=== PATIENT | male | born 1965 | race Caucasian/White ===

== ENCOUNTER 2021-04-20 22:51 | Observation (INO) ==
[2021-04-21] MEDS ORDERED: Melatonin 3 MG TABLET PO PRN ×2 (01:13→16:52)
[2021-04-21] MEDS ORDERED: Naloxone 0.4 MG/ML INJ IVP PRN (01:13)
[2021-04-21] MEDS ORDERED: Ondansetron 4 MG/2 ML VIAL IVP PRN (01:13)
[2021-04-21] MEDS ORDERED: Acetaminophen 325 MG TABLET PO PRN (01:13)
[2021-04-21] MEDS ORDERED: *HR* HYDROcodone/Acet 5/325 mg TABLET PO PRN ×2 (01:13→16:14)
[2021-04-21] MEDS: Ringers Solution, Lactated 1,000 ML IVC SCH ×2 (03:02→11:28)
[2021-04-21 05:33] LABS: Basophils % 0.3 %; Eosinophils % 0.2 %; Hemoglobin 13.5 g/dL (12.9-16.9); Immature Granulocytes % 0.3 % (0-4); Lymphocytes # 1.5 K/mcL (0.6-4.6); Lymphocytes % 13.2 %; Mean Corpuscular HGB Conc 33.8 g/dL (31.6-35.5); Mean Corpuscular Hemoglobin 29.7 pg (28.0-33.3); Mean Corpuscular Volume 88.1 fL (83.0-100.0); Monocytes % 8.9 %; Neutrophils # 8.9 K/mcL (1.6-8.9); Platelet Count 165 K/mcL (140-400); Red Blood Count 4.54 M/mcL (4.19-5.50); Red Cell Distribution Width 13.3 % (11.5-14.5); Segmented Neutrophils % 77.1 %; White Blood Count 11.6 K/mcL (4.3-11.1)
[2021-04-21 05:37] LABS: INR 1.4; Prothrombin Time 16.5 Seconds (9.4-12.1)
[2021-04-21 05:47] LABS: BUN/Creatinine Ratio 12 (6-26); Blood Urea Nitrogen 15 mg/dL (6-20); Calcium 8.3 mg/dL (8.6-10.3); Carbon Dioxide 21 mEq/L (23-29); Chloride 104 mEq/L (98-107); Glucose 113 mg/dL (70-105); Magnesium 1.8 mg/dL (1.6-2.6); Osmolality,Calculated 282 (280-300); Sodium 135 mEq/L (136-145); eGFR For African Americans > 60 (> 60); eGFR For Non-African Americans > 60 (> 60)
[2021-04-21] MEDS: cefTRIAXone 1,000 MG in Water for inj. (sterile) 10 ML IVP SCH (07:37)
[2021-04-21] MEDS ORDERED: Isovue-300 50ML VIAL ONE (07:53)
[2021-04-21] MEDS ORDERED: *HR* Midazolam HCl 2 MG/2 ML VIAL ONE (08:05)
[2021-04-21] MEDS ORDERED: *HR* FentaNYL (PF) 100 MCG/2 ML VIAL ONE (08:05)
[2021-04-21] MEDS ORDERED: Ondansetron 4 MG/2 ML VIAL ONE (08:05)
[2021-04-21] MEDS ORDERED: Lidocaine -MPF 2% 2 ML VIAL ONE (08:05)
[2021-04-21] MEDS ORDERED: *HR* Propofol 200 MG/20 ML VIAL IVP ONE (08:06)
[2021-04-21] MEDS ORDERED: Famotidine 20 MG/2 ML VIAL IVP ONE (08:13)
[2021-04-21] MEDS ORDERED: Acetaminophen IV 1,000 MG/100 ML BAG IVPB ONE (08:13)
[2021-04-21] MEDS ORDERED: *HR* OxyCODONE Immed Rel 5 MG TABLET PO PRN (08:13)
[2021-04-21] MEDS ORDERED: *HR* HYDROmorphone (PF) 1 MG/ML SYRINGE IVP PRN (08:13)
[2021-04-21] MEDS ORDERED: *HR* HYDROmorphone 2 MG TABLET PO PRN (08:13)
[2021-04-21] MEDS ORDERED: *HR* Labetalol 20 MG/4 ML SYRINGE IVP PRN (08:13)
[2021-04-21] MEDS ORDERED: Lidocaine HCL 4 ML Topical Solution (Laryng-O-Jet Kit Sterile Pak) TP ONE (08:17)
[2021-04-21] MEDS ORDERED: *HR* Succinylcholine 200 MG/10 ML VIAL IVP ONE (08:17)
[2021-04-21] MEDS ORDERED: *HR* Rocuronium Bromide 50 MG/5 ML VIAL ONE (09:00)
[2021-04-21] MEDS ORDERED: Sugammadex Sodium 200 MG/2 ML VIAL IV ONE (09:35)
[2021-04-21] MEDS: Topiramate 25 MG TABLET PO SCH (20:41)
[2021-04-22 06:27] LABS: BUN/Creatinine Ratio 19 (6-26); Blood Urea Nitrogen 19 mg/dL (6-20); Calcium 8.7 mg/dL (8.6-10.3); Carbon Dioxide 23 mEq/L (23-29); Chloride 108 mEq/L (98-107); Glucose 115 mg/dL (70-105); Magnesium 2.2 mg/dL (1.6-2.6); Osmolality,Calculated 289 (280-300); Potassium 4.2 mEq/L (3.5-5.1); Sodium 138 mEq/L (136-145); eGFR For African Americans > 60 (> 60); eGFR For Non-African Americans > 60 (> 60)
[2021-04-22 07:00] LABS: Basophils % 0.2 %; Eosinophils % 0.4 %; Hematocrit 40.1 % (37.5-50.1); Hemoglobin 13.6 g/dL (12.9-16.9); Immature Granulocytes % 0.4 % (0-4); Lymphocytes # 1.8 K/mcL (0.6-4.6); Lymphocytes % 16.2 %; Mean Corpuscular HGB Conc 33.9 g/dL (31.6-35.5); Mean Corpuscular Hemoglobin 30.6 pg (28.0-33.3); Mean Corpuscular Volume 90.1 fL (83.0-100.0); Mean Platelet Volume 11.4 fL (9.4-12.4); Monocytes # 1.2 K/mcL (0.0-1.3); Monocytes % 11.1 %; Neutrophils # 7.7 K/mcL (1.6-8.9); Platelet Count 174 K/mcL (140-400); Red Blood Count 4.45 M/mcL (4.19-5.50); Red Cell Distribution Width 13.2 % (11.5-14.5); Segmented Neutrophils % 71.7 %; White Blood Count 10.8 K/mcL (4.3-11.1)
[2021-04-22 07:24] VITALS: BP 118/75
[2021-04-22] MEDS ORDERED: OLANZapine 10 MG TAB.RAPDIS PO SCH (09:00)
[2021-04-22] MEDS ORDERED: Isosorbide MONOnitrate (24 HR) 30 MG TAB.ER.24H PO SCH (09:00)
[2021-04-22] MEDS: cefTRIAXone 1,000 MG in Water for inj. (sterile) 10 ML IVP SCH (09:35)
[2021-04-22] MEDS: Topiramate 25 MG TABLET PO SCH (09:36)
[2021-04-22 11:41] VITALS: PULSE 62; TEMP 98.1; O2SAT 92
== END 2021-04-22 15:43 | disposition home or self-care (01) ==
LOC: 3ANU → SUATTDRO 04-21 00:52
PROVIDERS: ADMIT Family Medicine; ATTEND Internal Medicine